=== PATIENT | female | born 1995 | race Caucasian/White ===

== ENCOUNTER 2017-04-19 22:27 | Emergency (ER) | payer BC ==
[2017-04-19] MEDS ORDERED: ONDANSETRON PF 4 MG/2 ML VIAL. (22:50)
[2017-04-19 22:51] LABS: ADD MAN DIFF? NO
[2017-04-19] MEDS: ONDANSETRON PF 4 MG/2 ML VIAL. IV (22:52)
[2017-04-19] MEDS: IV NORMAL SALINE 1000ML BAG 1,000 ML IV (22:52)
[2017-04-19 22:53] LABS: BASO # 0.1 x10^3/uL (0.0-0.2); BASO % 1 % (0-3); EOS % 1 % (0-3); HEMATOCRIT 39.6 % (36.0-47.0); HEMOGLOBIN 13.7 g/dL (12.0-15.5); LYMPH # 2.2 x10^3/uL (1.0-4.8); LYMPH % 27 % (24-48); MEAN CORPUSCULAR HEMOGLOBIN 30 pg (25-35); MEAN CORPUSCULAR HGB CONC 35 g/dL (31-37); MEAN CORPUSCULAR VOLUME 87 fL (79-100); MONO % 8 % (0-9); NEUT % 63 % (31-73); PLATELET COUNT 252 x10^3/uL (140-400); RED BLOOD COUNT 4.56 x10^6/uL (3.50-5.40); RED CELL DISTRIBUTION WIDTH 12.9 % (11.5-14.5); WHITE BLOOD COUNT 7.9 x10^3/uL (4.0-11.0)
[2017-04-19 22:54] LABS: URINE HCG POC HCG NEGATIVE (Negative)
[2017-04-19 22:55] LABS: BILIRUBIN,URINE NEGATIVE (NEG); GLUCOSE,URINE NEGATIVE (NEG); NITRITE,URINE NEGATIVE (NEG); PROTEIN,URINE NEGATIVE (NEG-TRACE); UROBILINOGEN,URINE 0.2 mg/dL (0.2 mg/dL)
[2017-04-19 23:04] LABS: BACTERIA,URINE 0 /HPF (0-FEW); SQUAMOUS EPITHELIAL CELL,UR FEW /LPF; WBC,URINE 0 /HPF (0-4)
[2017-04-19 23:11] LABS: NEG OBC FOB NEG; POS OBC FOB POS
[2017-04-19 23:13] LABS: ANION GAP 11 (6-14); BLOOD UREA NITROGEN 10 mg/dL (7-20); BUN/CREATININE RATIO 11 (6-20); CALCIUM 8.6 mg/dL (8.5-10.1); CARBON DIOXIDE 25 mmol/L (21-32); CHLORIDE 105 mmol/L (98-107); CREATININE 0.9 mg/dL (0.6-1.0); GFR 78.3; GLUCOSE 91 mg/dL (70-99); POTASSIUM 3.1 mmol/L (3.5-5.1); SODIUM 141 mmol/L (136-145)
[2017-04-19 23:18] LABS: ALBUMIN 4.1 g/dL (3.4-5.0); ALBUMIN/GLOBULIN RATIO 1.2 (1.0-1.7); ALK PHOS 33 U/L (46-116); ALT (SGPT) 24 U/L (14-59); AST (SGOT) 19 U/L (15-37); TOTAL PROTEIN 7.4 g/dL (6.4-8.2)
== END 2017-04-20 00:30 | disposition home or self-care (01) ==
LOC: ER 04-20 00:30
DX: R11.2 Nausea with vomiting, unspecified (principal); K92.1 Melena; R00.0 Tachycardia, unspecified; Z91.013 Allergy to seafood
CPT/HCPCS: 36415; 80053; 81001; 81025; 82274; 83690; 85025; 96361; 96374; 99284-25; J2405; J7030